=== PATIENT | female | born 1965 | race Caucasian/White ===

== ENCOUNTER 2024-06-19 20:35 | Emergency (ER) | payer BC, SELFPAY ==
[2024-06-19 20:40] VITALS: BP 123/84
[2024-06-19 23:51] VITALS: BP 154/82
--- NOTE | 2024-06-19 23:53 | ED.GENMED ---
History of Present Illness
<PAUL Hyatt - Last Filed: 06/20/24 03:25>
General
Chief Complaint: Abnormal Lab Value
Source: patient
Exam Limitations: none
Time Seen by Provider: 06/19/24 23:52
Nursing documentation reviewed up to this point in time: agreed with except (did not get abx inj at , just discussed )
History of Present Illness
History of Present Illness:
Patient is a 59yo F w/ PMH CLL, DM, and HTN presents to the ED after being sent by for high WBC. Pt injured L 3rd toe 5 days ago, went to 06/16, dx w/ cellulitis, and started on doxy. Pt returned to 06/19, labs were redrawn, and WBC count
went up. Pt states that told her they were concerned that this meant infx is in blood and body was not fighting infx. Pt admits that redness of toe has decreased. Continues to endorse pain w/ tenderness. Reports incr swelling of L lateral foot
and continued pain w/ wb. States pain has started to radiate across foot. Reports hx of L tibia, R ankle, metatarsal, and BL wrist fx. Uses compression boots for leg swelling, possible lymphedema. States yeast infx has remained the same and only
given 2 doses of fluconazole.
Review of Systems
<PAUL Hyatt - Last Filed: 06/20/24 03:25>
Review of Systems
Constitutional: Denies fever, fatigue or chills
EENT: Denies sore throat or runny nose
Respiratory: Denies cough or trouble breathing
Cardiac: Denies chest pain or palpitations
ABD/GI: Denies abdominal pain, nausea, vomiting, diarrhea or constipated
: Denies dysuria
Skin: Reports itching and rash
Neurological: Denies dizzy or headache
Phy Exam
<PAUL Hyatt - Last Filed: 06/20/24 03:25>
General Physical Exam
General Presentation: mild distress
General age: appears older than age
General Habitus: obese
General Mental: alert and anxious
Eye Exam
Eye Exam: PERRL
Cardiovascular Exam
Cardiovascular Exam: regular rate/rhythm
Pulmonary Exam
Pulmonary Exam: lungs clear, no respiratory distress, no rales, no crackles and no rhonchi
Neurological Exam
Neurological Exam: alert, oriented x3 and speech normal
Musculoskeletal Exam
Musculoskeletal Exam: edema
Course
<ST OlenaPA - Last Filed: 06/20/24 03:25>
Orders/Labs/Results
Orders:
Orders
06/20/24 00:55
Foot, Left 3 View [CR Foot - Left Min 3 Views] Urgent
Comment:
Reason For Exam: direct trauma to dorsal foot, 3rd toe-pain
06/20/24 01:59
Lester Wrap Left-Treatment ONCE
Comment: left foot
Vital Signs
Initial and Last Documented VS:
Initial Vital Signs
Temp Pulse Resp BP Pulse Ox
97.7 F 78 16 123/84 99
06/19/24 20:40 06/19/24 20:40 06/19/24 20:40 06/19/24 20:40 06/19/24 20:40
Last Documented Vital Signs
Temp Pulse Resp BP Pulse Ox
97.7 F 65 18 118/66 100
06/19/24 20:40 06/20/24 01:09 06/20/24 01:09 06/20/24 01:09 06/20/24 01:13
<Nakia Fink DO - Last Filed: 06/20/24 02:03>
Orders/Labs/Results
Orders:
Orders
06/20/24 00:55
Foot, Left 3 View [CR Foot - Left Min 3 Views] Urgent
Comment:
Reason For Exam: direct trauma to dorsal foot, 3rd toe-pain
06/20/24 01:59
Lester Wrap Left-Treatment ONCE
Comment: left foot
Vital Signs
Initial and Last Documented VS:
Initial Vital Signs
Temp Pulse Resp BP Pulse Ox
97.7 F 78 16 123/84 99
06/19/24 20:40 06/19/24 20:40 06/19/24 20:40 06/19/24 20:40 06/19/24 20:40
Last Documented Vital Signs
Temp Pulse Resp BP Pulse Ox
97.7 F 65 18 118/66 100
06/19/24 20:40 06/20/24 01:09 06/20/24 01:09 06/20/24 01:09 06/20/24 01:13
<PAUL Hyatt - Last Filed: 06/20/24 03:25>
MDM/Problems Addressed
Differential Diagnosis Includes:
benign leukocytosis, UTI, acute LL on CLL
<PAUL Hyatt - Last Filed: 06/20/24 03:25>
*Critical Care Note
Total Time (30-74mins, 75-104mins- exclusive of procedures): Not Applicable
<Nakia Fink DO - Last Filed: 06/20/24 02:03>
*Radiology
Radiology exam reviewed: preliminary read by ED provider (Left foot x-ray shows no evidence of acute fracture.)
*Pulse Oximetry
Patient hypoxic: no
ED Attending Note
<PAUL Hyatt - Last Filed: 06/20/24 03:25>
-
Portions of this chart may have been created with voice recognition software.� Occasional wrong word or��sound alike� substitutions may have occurred due to the inherent limitations of voice recognition software.
<Nakia Fink, DO - Last Filed: 06/20/24 02:03>
ED Attending Note
Patient seen and examined by attending physician: Yes
I performed the substantive portion of visit, reviewed & personally made and approve the management plan that is documented in note by myself or PERCY.: Yes
ED Attending Note:
This is a 59-year-old obese woman who resides at home with her . She has history of CLL, maintained on Imbruvica, history of bipolar disorder, chronic lymphedema bilateral lower extremities as well as history of akg-vyclxgi-igrdxfkoe
diabetes, recently diagnosed with hemoglobin A1c elevated at 12. Has been started on metformin as well as Ozempic earlier this month.
She also has history of DJD of knees, has been following with orthopedics and has undergone Synvisc injections to her knees and most recently underwent steroid injection to her knees June 13.
While at her son's wedding this weekend her left foot was inadvertently stepped on and she complains of pain to her third toe of her left foot with pain radiating up the dorsal aspect of her left foot.
Evaluated at urgent care June 17 and underwent x-rays reportedly negative. Was diagnosed with cellulitis of her toe and started on doxycycline.
Return visit to urgent care for recheck June 19. Both patient and the note improvement in redness and swelling of her left third toe and she also notes that she has not had a fever, no chills.
Repeat laboratory studies performed earlier today; urgent care was concerned with uptrend in white blood cell count from 12.1 on June 17 to now 12.9. Sent to the ED for further evaluation.
She does have history of chronic lymphedema bilateral lower extremities and has Lymphedema pumps at home which she uses most nights.
She has not had a fever nor chills.
Blood sugars have been better controlled generally running 109-250.
59-year-old woman appears her stated age, bright and alert, pleasant, quite chatty, appears in no acute distress. is accompanying. She is afebrile.
HEENT: Oral mucosa is moist.
Heart is regular rate and rhythm. No murmur no rub.
Respirations are easy nonlabored.
Abdomen is rotund, soft, nontender.
Extremities: Chronic venous stasis skin thickening bilateral lower extremities with mild rubor to bilateral lower extremities. There is a single small intact vesicle left anterior mckeon. There is a subacute superficial abrasion left lateral lower
leg without drainage nor focal erythema.
The third toe of the left foot has minimal erythema distal aspect of the toe just proximal to the nail. Nail and nailbed are intact. There is no ulceration, no lymphangitis. Mild to moderate tenderness about the toe as well as mild tenderness to
the mid to distal foot. Peripheral pulses are full and equal. Sensation and strength intact.
With history diabetes, CLL, chronic venous stasis bilateral lower extremities patient is certainly at risk for infectious process, cellulitis.
However reassuring that erythema of toe has improved over the past 48 hours with just 48 hours of antibiotics.
It is also reassuring that she has not had a fever, no tachycardia, no fatigue nor weakness. Nothing to suggest SIRS.
Labs from urgent care show mild uptrend in white blood cell count but this could certainly be attributed to recent steroid injection from less than 1 week ago.
Will check x-ray of left foot due to continued pain, concern for occult fracture.
At this point no indication for further laboratory studies and would recommend she continue doxycycline until finished.
06/20/2024 0200 AM
Left foot x-ray shows no evidence of acute fracture.
Will add Lester wrap to left foot for supportive measures.
Recommend continuing doxycycline until finished.
Continue lymphedema pumps on a daily basis.
Prompt follow-up with PCP for recheck.
Discharge Plan
Departure
Patient Disposition: Home (Routine Discharge)
Date of Disposition: 06/20/24
Time of Disposition: 02:01
Patient with high blood pressure during this ER visit?: No
Condition: Good
Discharge Problem:
Contusion of foot, left
Instructions: Lymphedema (DC), Contusion
Prescriptions:
No Action
furosemide [Lasix] 40 mg Tablet
40 mg PO Q48H
alprazolam [Xanax] 1 mg Tablet
1 mg PO PRN PRN (Reason: anxiety)
meclizine 12.5 mg Tablet
12.5 mg PO BID
aspirin [Aspir-81] 81 mg Tablet,Delayed Release (Dr/Ec)
81 mg PO DAILY
potassium chloride 20 mEq Packet
20 meq PO DAILY
metoprolol tartrate 50 mg Tablet
50 mg PO BID
allopurinol 300 mg Tablet
300 mg PO DAILY
lisinopril 2.5 mg Tablet
2.5 mg PO DAILY
Patient Comments:
I believe it is 2.5 mg, it may be 5mg
metformin 750 mg Tablet Extended Release 24 Hr
750 mg PO DAILY
rosuvastatin 10 mg Tablet
10 mg PO DAILY
cholecalciferol (vitamin D3) [Vitamin D3] 125 mcg (5,000 unit) Tablet
5,000 unit PO DAILY
Imbruvica 280 mg Tablet
280 mg PO DAILY
Ozempic 0.25 mg or 0.5 mg (2 mg/3 mL) Pen Injector
0.5 mg SC QWEEK
Referrals:
Robert Dale MD [Family Provider] - Call in 1-3 days for appt
Interventions
Interventions:
*Risk Screen - Suicide Last Done: 06/19/24 20:40
*General Assessment Last Done: 06/20/24 02:44
*Neglect/Abuse Screening Last Done: 06/19/24 20:40
ED- Fall Risk Assessment Last Done: 06/20/24 00:10
*Nursing Disposition Last Done: 06/20/24 02:44
Discharge Date and Time
Discharge Date/Time: 06/20/24 02:45
Print Language: EGYPTIAN
[2024-06-19 23:58] VITALS: BP 154/82
--- NOTE | 2024-06-20 00:10 | EDRN ---
Pt. sent from Urgent Care 'because my white blood cell count was too high compared to the last one they did'. Paperwork shows WBC increased from 12.1 on 06/17, to 12.9 today. Refer to scanned documentation for further results and [facility]
documentation.
[2024-06-20 01:09] VITALS: BP 118/66
== END 2024-06-20 02:45 | disposition home or self-care (01) ==
LOC: EMR 20:35
PROVIDERS: EMERGENCY PHYSICIAN Emergency Medicine; FAMILY PHYSICIAN Family Medicine
DX: S90.32XA Contusion of left foot, initial encounter (principal); W51.XXXA Accidental striking against or bumped into by another person, initial encounter; I10 Essential (primary) hypertension; E11.9 Type 2 diabetes mellitus without complications
CPT/HCPCS: 99283; 73630

== ENCOUNTER → 2024-07-08 16:38 | Outpatient (REF) | payer BC, SELFPAY | LOC: RAD 16:38 | PROVIDERS: ATTENDING PHYSICIAN Physician Assistant Medical | DX: J40 Bronchitis, not specified as acute or chronic (principal); R06.2 Wheezing | CPT/HCPCS: 71046 ==

== ENCOUNTER 2024-07-18 17:26 | Observation (INO) | payer BC, SELFPAY ==
[2024-07-18] VITALS (10 sets, daily range): BP systolic 122–200; BP diastolic 71–110; BMI 37.6
[2024-07-18 13:54] LABS: % Basophils 0.4 % (0-2); % Immature Granulocytes 1.8 % (0-0.5); % Lymphocytes 10.6 % (20.5-51.1); % Monocytes 3.3 % (1.7-9.3); % Neutrophils 83.9 % (42.2-75.2); Absolute Basophils 0.1 10^3/uL (0-0.2); Absolute Immature Granulocytes 0.4 10^3/uL (0-0.05); Absolute Lymphocytes 2.4 10^3/uL (1.2-3.4); Absolute Monocytes 0.8 10^3/uL (0.1-0.6); Absolute Neutrophils 19.2 10^3/uL (1.4-6.5); Hematocrit 46.8 % (37.0-47.0); Hemoglobin 15.9 g/dL (12.0-16.0); Mean Corpuscular Hgb 35.2 pg (27.0-31.0); Mean Corpuscular Volume 103.5 fL (81.0-99.0); Mean Platelet Volume 11.1 fL (7.4-10.4); Nucleated Red Blood Cells % 0 %; Platelet Count 319 10^3/uL (130-400); Red Blood Cell Count 4.52 10^6/uL (4.20-5.40); Red Cell Dist. Width 13.2 % (11.5-14.5); White Blood Cell Count 22.9 10^3/uL (4.8-10.8)
[2024-07-18 14:14] LABS: Troponin I < 0.012 ng/ml
[2024-07-18 14:27] LABS: ALT (SGPT) 54 U/L (0-35); AST (SGOT) 39 U/L (14-36); Albumin 4.7 g/dl (3.5-5.0); Alkaline Phosphatase 142 U/L (38-126); Blood Urea Nitrogen 25 mg/dl (7-17); Calcium 10.2 mg/dl (8.4-10.2); Carbon Dioxide 23 mmol/L (22-30); Chloride 99 mmol/L (98-107); Glucose 244 mg/dl (70-99); Potassium 4.3 mmol/L (3.5-5.1); Sodium 138 mmol/L (135-145); Total Bilirubin 0.8 mg/dl (0.2-1.3); Total Protein 7.3 g/dl (6.3-8.2); eGFR > 60.00
--- NOTE | 2024-07-18 14:32 | ED.GENMED ---
History of Present Illness
General
Chief Complaint: Fall
Source: patient, spouse and family
Exam Limitations: none
Time Seen by Provider: 07/18/24 14:04
Nursing documentation reviewed up to this point in time: agreed with
History of Present Illness
History of Present Illness:
59-year-old female presents emergency department via EMS from home. She blacked out. She states this has happened before when she has panic attacks. She denies feeling lightheaded or woozy prior to the event.
Past History
Past History
ED Past Medical History: Cancer (CLL) and HTN
ED Past Surgical History:
Social History
Tobacco: Smoker
Alcohol: None
Drug: None
Personal:
Living: with family
Review of Systems
Review of Systems
Allergies reviewed?: Yes
All Other Systems: Not applicable
Constitutional: Reports no symptoms
EENT: Reports no symptoms
Respiratory: Reports no symptoms
Cardiac: Reports syncope
ABD/GI: Reports no symptoms
: Reports no symptoms
Musculoskeletal: Reports no symptoms
Skin: Reports no symptoms
Neurological: Reports no symptoms
Endocrine: Reports no symptoms
Hematologic/Lymphatic: Reports no symptoms
Psychiatric: Reports no symptoms
Phy Exam
Physical Exam
Physical Exam:
Physical Exam
General: no apparent distress, not acutely ill
Neck: supple. no meningeal signs. normal posterior pharynx
Heart: s1/s2 regular rate and rhythm, no murmur. equal radial
pulses.
HEENT: Pupils equal round reactive to light, EOMI, bruise and superficial laceration nose
Lungs: no acute respiratory distress. clear bilaterally
Abdomen: normal bowel sounds. not tender. no CVAT
Neuro: alert and oriented. no focal neurological deficits cranial nerves II through XII intact
Skin: no rash
Psychiatric: well kept. interactive and cooperative
Extremities: no edema. no calf tenderness. negative homans. good distal pulses
Course
Orders/Labs/Results
Orders:
Orders
07/18/24 13:22
Electrocardiogram (*1) Urgent
Reason for Study: Chest Pain
Cardiac Monitoring- Treatment ONCE
EKG- Treatment ONCE
IV Insert/Care/Rem.- Treatment PRN
O2 Therapy [RESP] Urgent
Titrate/Wean O2 to maintain O2 sat greater than (%): 90
Special Instructions: Maintain sats >/=90%
Pulse Ox/spot Check [RESP] Urgent
Quantity: 1
Special Instructions: ON ROOM AIR
07/18/24 13:30
Complete Blood Count/With Diff Urgent
Comprehensive Metabolic Panel Urgent
Troponin I Urgent
07/18/24 14:23
CT Head W/o Iv Contrast Urgent
Comment:
Reason For Exam: syncope, hit head
07/18/24 Dinner
1800 calorie (15 carb) Diabetic
At Your Request: Full Participation
07/18/24 17:09
Admit/Transfer Patient As Directed
Co-Sign Provider:
Level of Care: Observation services
Assign to:: Telemetry
Physician / Group: Dr Engle
Diagnosis: Syncope
Reason for Telemetry: Arrhythmia
Date to Stop Telemetry: 07/21/24
Time to Stop Telemetry: 11:00
PRN Pain Medication Management As Directed
May give lesser potent ordered pain med per pt: Yes
preference::
Protocol:: Medication orders for pain may be administered in a
manner that supports deferring to patient preference
when the pt is:
- Requesting an ordered lesser potent pain medication.
Least to most potent pain medications are defined
as: acetaminophen < NSAID < tramadol < opioids
(morphine, oxycodone, hydromorphone).
- Requesting a lesser dose of the same medication IF
ORDERED.
- Requesting a less intrusive route of administration
if both routes are prescribed by the provider (PO <
IV).
07/18/24 17:12
Code Status As Directed
Resuscitation Status: Full Code
07/18/24 17:14
Orthostatic Vital Signs As Directed
Orthostatic VS Frequency: BID
07/18/24 17:15
CARDIOLOGY CONSULT Routine
Consulting Provider: Vinod Chu
Was physician already notified: Yes
Reason for consult: Syncope eval
Dextrose 50%-Water [Dextrose 50% Syringe] 12.5 grams IV [id number] PRN
Glucagon [GlucaGen] 1 mg IM PRN PRN
07/18/24 17:16
Bedside Glucose Monitoring As Directed
Frequency: AC&HS
Additional Instructions:: Change to q6h if pt on TPN, tube feeding or not eating
07/18/24 18:00
0.9% Sodium Chloride 1000 ml [Nss] 1,000 ml IV 65 mls/hr
Allopurinol [Zyloprim] 300 mg PO QPM
Alprazolam [Xanax] 1 mg PO Q4H
Metformin Extended Release [Glucophage Xr Extended Release] 750 mg PO QPM
07/18/24 18:30
Bisacodyl [Dulcolax] 10 mg RECTAL [id number] PRN
Docusate W/Senna [Senokot-S] 1 tablet PO BIDPRN PRN
Enoxaparin Sodium [Lovenox] 40 mg SC QPM
Polyethylene Glycol Powder [Miralax] 17 grams PO DAILYPRN PRN
ibrutinib [Imbruvica] See Dose Instructions PO QPM
07/18/24 18:30
Activity As Directed
Activity Level: Out of Bed-Early Mobility
Vital Signs As Directed
Frequency: Per unit guidelines
DX Deep Vein Thrombosis Video Routine
07/19/24 06:00
Basic Metabolic Panel IN AM
Complete Blood Count/With Diff IN AM
Glycohemoglobin (HgbA1c) IN AM
LFT [Dyyvu-Zegx-Euomlec] IN AM
Troponin I IN AM
07/19/24 07:30
Insulin Aspart Corrective Mod [Novolog Flexpen-Moderate Resistance] See Protocol SC AC
07/19/24 08:00
Aspirin Low Dose EC [Aspir Low (Enteric Coated)] 81 mg PO DAILY
Lisinopril [Zestril] 10 mg PO DAILY
Metoprolol Xl [Toprol Xl] 100 mg PO DAILY
07/21/24 11:00
DC Protocol for Telemetry ONCE
Abnormal Lab Results
07/18/24
13:30
WBC 22.9 H 10^3/uL
(4.8-10.8)
MCV 103.5 H fL
(81.0-99.0)
MCH 35.2 H pg
(27.0-31.0)
MPV 11.1 H fL
(7.4-10.4)
Abs Immat Gran (auto) 0.4 H 10^3/uL
(0-0.05)
Absolute Neuts (auto) 19.2 H 10^3/uL
(1.4-6.5)
Absolute Monos (auto) 0.8 H 10^3/uL
(0.1-0.6)
Immature Gran % 1.8 H %
(0-0.5)
Neutrophils % 83.9 H %
(42.2-75.2)
Lymphocytes % 10.6 L %
(20.5-51.1)
BUN 25 H mg/dl
(7-17)
Glucose 244 H mg/dl
(70-99)
AST 39 H U/L
(14-36)
ALT 54 H U/L
(0-35)
Alkaline Phosphatase 142 H U/L
(38-126)
07/18/24 13:30
07/18/24 13:30
Vital Signs
Initial and Last Documented VS:
Initial Vital Signs
Temp Pulse Resp BP Pulse Ox
98.7 F 100 20 199/110 98
07/18/24 13:15 07/18/24 13:15 07/18/24 13:15 07/18/24 13:15 07/18/24 13:15
Last Documented Vital Signs
Temp Pulse Resp BP Pulse Ox
98.3 F 84 16 156/91 99
07/18/24 18:40 07/18/24 18:40 07/18/24 18:40 07/18/24 18:40 07/18/24 18:40
MDM/Problems Addressed
Differential Diagnosis Includes:
Dysrhythmia
MDM/Problems Addressed:
59-year-old female with sudden syncope episode without prodrome. Admit to hospitalist for further evaluation. Patient's leukocytosis related to her CLL. Do not section.
Chronic conditions affecting care: Cancer (CLL)
*Radiology
Radiology exam reviewed: radiology read reviewed (CT head no acute findings)
*Pulse Oximetry
Patient hypoxic: no
*EKG
Interpreted by ED Provider?: Yes
EKG Intrepretation Date: 07/18/24
EKG Intrepretation Time: 13:26
Interpretation: abnormal
Comparison EKG: changes noted
Heart Rate: 83
Rate: normal
Rhythm: sinus and sinus arrhythmia
[place]: normal axis
Interval: normal interval
QRS Pattern: normal QRS
Ischemia: no ischemia
*Hardening Machine Operator Interpretation
Rate: normal
Interpretation: normal
Heart Rate: 88
Rhythm: sinus
*Critical Care Note
Total Time (30-74mins, 75-104mins- exclusive of procedures): Not Applicable
Patient Management
Social determinants of health affecting care: Living situation
Discussion with other providers: Hospitalist
Escalation/DeEscalation of care consider admission/obs:
admit indicated
ED Attending Note
-
Portions of this chart may have been created with voice recognition software.� Occasional wrong word or��sound alike� substitutions may have occurred due to the inherent limitations of voice recognition software.
Discharge Plan
Departure
Patient Disposition: Admit
Date of Disposition: 07/18/24
Time of Disposition: 16:25
Admit to: Telemetry
Presentation/result/management discussed w/ accepting MD/DO: Hospitalist
Patient with high blood pressure during this ER visit?: Yes
Condition: Good
Discharge Problem:
Syncope, Fall
Interventions
Interventions:
*Risk Screen - Suicide Last Done: 07/18/24 13:15
*General Assessment Last Done: 07/18/24 13:15
*Neglect/Abuse Screening Last Done: 07/18/24 13:15
ED- Fall Risk Assessment Last Done: 07/18/24 15:47
*ED COVID-19 Vaccine History Last Done: 07/18/24 13:15
*Nursing Disposition Last Done: 07/18/24 18:30
ED-Musculoskeletal Assessment Last Done: 07/18/24 15:47
ED- Neurological Assessment Last Done: 07/18/24 13:28
ED-Skin Assessment Last Done: 07/18/24 15:47
Discharge Date and Time
Discharge Date/Time: 07/18/24 18:31
--- NOTE | 2024-07-18 17:17 | HPS.HSE ---
Family Physician
-
Family Physician: Robert Dale
Chief Complaint
-
Syncope
History of Present Illness
Patient is 59 years old female with history of hypertension, hyperlipidemia, diabetes mellitus, bipolar, anxiety, CLL, recent bronchitis, possible CHF, presented to the hospital for syncope. Patient went outside to smoke some cigarettes around 12
to 1 PM today and when she went back she felt some palpitations and passed out. Her heard a thump and went and checked on her and she was minimally responsive for a couple minutes but no tonic-clonic activity or tongue biting or bowel or
bladder incontinence. No chest pain or shortness of breath prior or after the event. On further questioning patient describes several things going on lately; she has been recently diagnosed with bronchitis when she was taking antibiotics and
steroids. She also has been having decreased sleep maybe one hour the most she sleeping. She also having increased anxiety. Patient also has been on GLP-1 agonist over the last few weeks. She also had changes on her diuretics doses. She also
states she did not eat for over 12 hours. In the ER, noticed leukocytosis and increased LFTs. She was referred to hospitalist service for further evaluation.
Medical History
Past Medical History
Past Medical History: Reports Other (hypertension, hyperlipidemia, diabetes mellitus, bipolar, anxiety, CLL, probable CHF.)
Past Surgical History: Reports None
Social History
Tobacco: Smoker
Alcohol: None
Drug: None
Family History
Family History: Not pertinent
Allergies / Home Medications
Allergies reflects when Allergies were last updated in [facility].
Home Medications with original date entered in [facility]
Allergy/Medication List:
Allergies
Allergy/AdvReac Type Severity Reaction Status Date / Time
aripiprazole [From Abilify] Allergy Unknown Verified 06/19/24 20:47
escitalopram Allergy Unknown Verified 06/19/24 20:47
gabapentin Allergy Rash Verified 06/19/24 20:47
olanzapine Allergy Rash Verified 06/19/24 20:47
sulfamethoxazole Allergy Rash Verified 06/19/24 20:47
[From Bactrim]
tiapride Allergy Rash Verified 04/01/22 20:09
trimethoprim [From Bactrim] Allergy Rash Verified 06/19/24 20:47
UNSURE Allergy Unknown Uncoded 02/15/22 22:27
Home Medications
allopurinol 300 mg tablet 300 mg PO QPM Gout 06/19/24
alprazolam 1 mg tablet (Xanax) 1 mg PO Q4H anxiety 06/19/24
aspirin 81 mg tablet,delayed release 81 mg PO DAILY Blood Clot Prevention/Tx 06/19/24
cholecalciferol (vitamin D3) 125 mcg (5,000 unit) tablet (Vitamin D3) 5,000 unit PO DAILY Supplement 06/19/24
furosemide 40 mg tablet (Lasix) 40 mg PO Q48H Fluid Retention/Swelling 06/19/24
ibrutinib 280 mg tablet (Imbruvica) 280 mg PO QPM Cancer 06/19/24
meclizine 12.5 mg tablet 12.5 mg PO BID vertigo 06/19/24
metformin 750 mg tablet,extended release 24 hr 750 mg PO QPM Diabetes 06/19/24
potassium chloride 20 mEq oral packet 20 meq PO QPM Electrolyte Repletion 06/19/24
rosuvastatin 10 mg tablet 10 mg PO DAILY High Cholesterol 06/19/24
semaglutide 0.25 mg or 0.5 mg (2 mg/3 mL) subcutaneous pen injector (Ozempic) 0.5 mg SC MERCEDES Diabetes 06/19/24
acetaminophen 650 mg tablet,extended release (Tylenol 8 Hour) 650 mg PO [id number] PRN mild pain 07/18/24
azithromycin 250 mg tablet 250 mg PO DAILY infection 07/18/24
calcium carbonate (Tums) 200 mg PO QIDPRN PRN stomach issues 07/18/24
fluticasone propionate 50 mcg/actuation nasal spray,suspension 1 spray intranasal DAILY Allergies 07/18/24
inulin 2 gram chewable tablet (Fiber Gummies) 4 g PO DAILY constipation 07/18/24
lisinopril 10 mg tablet 10 mg PO DAILY Blood Pressure 07/18/24
metoprolol succinate 50 mg tablet,extended release 24 hr 100 mg PO DAILY Heart Disease/BP 07/18/24
prednisone 10 mg tablet 10 mg PO .TAPER Anti-Inflammatory 07/18/24
Review of Systems
-
A 12 point ROS was completed and negative except as noted: Yes
Physical Exam
Vital Signs
Vital Signs
Temp Pulse Resp BP Pulse Ox
98.7 F 76 16 158/91 96
07/18/24 13:15 07/18/24 17:00 07/18/24 16:00 07/18/24 17:00 07/18/24 17:00
Physical exam:
General: Well Developed, Well Nourished and No Apparent Distress
HEENT: Normocephalic, Atraumatic and Moist Mucous Membranes
Respiratory: Clear to Auscultation; Negative Wheezes, Rales or Rhonchi
Cardiac: Regular Rhythm and S1/S2
GI: Soft, Nontender and Nondistended
Musculoskeletal: No Clubbing, No Cyanosis and No Edema
Neuro: Awake, Alert and Oriented, no neuro-deficits
Psych: Anxious, a bit pressure speech but family summarize her statements frequently
Physical Exam
General: Other
Laboratory Results
-
07/18/24 13:30
07/18/24 13:30
Laboratory Results
Total Bilirubin 0.8 mg/dl (0.2-1.3) 07/18/24 13:30
AST 39 U/L (14-36) H 07/18/24 13:30
ALT 54 U/L (0-35) H 07/18/24 13:30
Alkaline Phosphatase 142 U/L (38-126) H 07/18/24 13:30
Troponin I < 0.012 ng/ml 07/18/24 13:30
Data Reviewed
-
CT Scan: Image Personally Visualized and interpreted
Lab Data: Labs Reviewed by me
Impression/Plan
-
IMPRESSION:
Patient is 59 years old female with multiple comorbidities presented to the hospital with syncope event.
PLAN:
Syncope:
Unclear etiology but appears to have multiple triggers
Check orthostatic
Gentle IV fluid
Hold diuretics for now
Trend cardiac enzymes- first cardiac enzyme normal
EKG no apparent significant abnormality
Cardiology consult-discussed with cardiology via [facility] text
CT head unremarkable for acute pathology
Will see if psych or neuro needs to be involved after reevaluation in a.m. for ?sz or anxiety and/or manic sx
Leukocytosis:
Reactive versus infection
Likely reactive due to recent steroid use and underlying CLL
Hold abx and steroids
Follow-up trend
Elevated LFTs:
Unclear etiology
Hold statins for now
Follow-up trend and if persists then will do further workup
Hypertension:
Continue beta-laure and SUJIT inhibitor
Monitor blood pressure and adjust medications accordingly
Hyperlipidemia:
Hold statin
Diabetes mellitus type 2:
Diabetic diet
Insulin sliding scale
Update hemoglobin A1c in a.m.
Check TSH in am
CLL:
Continue Imbruvica
Smoker:
Nicotine patch
DVT prophylaxis:
Lovenox SQ
CODE STATUS:
Full code
Time spent 75 minutes
[2024-07-18] MEDS: NSS 1000 IV (19:15)
[2024-07-18] MEDS: ZYLOPRIM 300 MG PO (19:15)
[2024-07-18] MEDS: XANAX 1 MG PO ×2 (19:15→22:57)
[2024-07-18] MEDS: NICODERM TRANSDERMAL 14 MG TRANSDERM (19:15)
[2024-07-18] MEDS: LOVENOX 40 MG SC (19:16)
[2024-07-18] MEDS: GLUCOPHAGE XR EXTENDED RELEASE 750 MG PO (19:16)
[2024-07-18 22:25] LABS: Glucose - Point of Care 149 mg/dl (70-99)
[2024-07-19] MEDS: MOTRIN 400 MG PO (00:04)
[2024-07-19] MEDS: XANAX 1 MG PO ×5 (03:08→18:34)
[2024-07-19 03:50] VITALS: BP 99/61
[2024-07-19] MEDS: REFRESH EYE DROPS (PF) 1 DROPS OPHTH (05:50)
[2024-07-19 06:00] VITALS: BMI 37.4
--- NOTE | 2024-07-19 07:56 | CON.CAR ---
Addendum entered and electronically signed by Vinod Chu MD 07/19/24 18:13:
I saw and examined the patient.
The Screw Machine Operator [employer] Type's note was reviewed and I agree with the note.
Comment: Briefly, 59-year-old woman with past medical history of hypertension, type 2 diabetes and CLL who presents following syncopal episode
Patient reports loss of consciousness yesterday that brought her to the [place] emergency department
Tells me she had gone outside to smoke a cigarette and then abruptly passed out
She does not have recollection of the event and cannot give me any details regarding prodromal symptoms
Has had poor oral intake since starting Ozempic, possible that dehydration or hypoglycemia contributed to this episode
Twelve-lead ECG and physical exam are unremarkable
Telemetry shows normal sinus rhythm, no arrhythmias and no high-grade AV block or pauses
Transthoracic echocardiogram confirmed she has a structurally normal heart and no significant valve disease
Plan for outpatient bulk picker to assess for arrhythmia
We will arrange for office follow-up
Original Note:
Consultation
Consultation Request
Date/Time Consultation Requested: 07/19/2024
Date/Time Consultation Performed: 07/19/2024
Requesting Provider: Dr. Engle
Performing Provider: Patience Byrd PA-C for Dr. Chu
Reason for Consultation: Syncope
Medical History
-
History of Present Illness:
HPI: Pascale is a 59 year old female with PMH HTN, HLD, DM2, Bipolar disorder, and CLL who presented to [facility] for evaluation after syncopal episode at home. She reports she has not been sleeping well and also has not been eating or drinking much and
has been losing weight with ozempic and lasix. She went outside yesterday to smoke a cigarette and came in to have food and suddenly passed out. She does not remember what happened prior to event and denies any dizziness/lightheadedness prior to
event. Her who was home at the time heard a thump and came down, finding her face down on the floor. He called 911 and she started to wake back up after a few minutes. She denies any history of syncope, but does admit to 'blacking out' with
prior episodes of panic attacks. She feels well currently and has no complaints. Workup in ER was unremarkable. Troponin negative, EKG stable. Labwork did reveal leukocytosis, however otherwise was without significant abnormality. BP was stable in
ER, however on most recent check this AM was somewhat hypotensive at 99/61.
PMH:
Hypertension
Hyperlipidemia
DM 2
Bipolar disorder
CLL
Past Medical History
Past Medical History: Other (In HPI)
Past Surgical History:
Social History
Tobacco: Smoker
Alcohol: None
Drug: None
Personal:
Living: With Family
Family History
Family History: Cancer and Hypertension
Allergies / Home Medications
Allergy/AdvReac Type Severity Reaction Status Date / Time
aripiprazole [From Abilify] Allergy Unknown Verified 06/19/24 20:47
escitalopram Allergy Unknown Verified 06/19/24 20:47
gabapentin Allergy Rash Verified 06/19/24 20:47
olanzapine Allergy Rash Verified 06/19/24 20:47
sulfamethoxazole Allergy Rash Verified 06/19/24 20:47
[From Bactrim]
tiapride Allergy Rash Verified 04/01/22 20:09
trimethoprim [From Bactrim] Allergy Rash Verified 06/19/24 20:47
UNSURE Allergy Unknown Uncoded 02/15/22 22:27
�Medication �Instructions �Recorded �Confirmed �Type
allopurinol 300 mg tablet 300 mg PO QPM Gout 06/19/24 07/18/24 History
alprazolam 1 mg tablet (Xanax) 1 mg PO Q4H anxiety 06/19/24 07/18/24 History
aspirin 81 mg tablet,delayed 81 mg PO DAILY Blood Clot 06/19/24 07/18/24 History
release Prevention/Tx
cholecalciferol (vitamin D3) 125 5,000 unit PO DAILY Supplement 06/19/24 07/18/24 History
mcg (5,000 unit) tablet (Vitamin
D3)
furosemide 40 mg tablet (Lasix) 40 mg PO Q48H Fluid 06/19/24 07/18/24 History
Retention/Swelling
ibrutinib 280 mg tablet (Imbruvica) 280 mg PO QPM Cancer 06/19/24 07/18/24 History
meclizine 12.5 mg tablet 12.5 mg PO BID vertigo 06/19/24 07/18/24 History
metformin 750 mg tablet,extended 750 mg PO QPM Diabetes 06/19/24 07/18/24 History
release 24 hr
potassium chloride 20 mEq oral 20 meq PO QPM Electrolyte Repletion 06/19/24 07/18/24 History
packet
rosuvastatin 10 mg tablet 10 mg PO DAILY High Cholesterol 06/19/24 07/18/24 History
semaglutide 0.25 mg or 0.5 mg (2 0.5 mg SC MERCEDES Diabetes 06/19/24 07/18/24 History
mg/3 mL) subcutaneous pen injector
(Ozempic)
acetaminophen 650 mg 650 mg PO [id number] PRN mild pain 07/18/24 07/18/24 History
tablet,extended release (Tylenol 8
Hour)
azithromycin 250 mg tablet 250 mg PO DAILY infection 07/18/24 07/18/24 History
calcium carbonate (Tums) 200 mg PO QIDPRN PRN stomach issues 07/18/24 07/18/24 History
fluticasone propionate 50 1 spray intranasal DAILY Allergies 07/18/24 07/18/24 History
mcg/actuation nasal
spray,suspension
inulin 2 gram chewable tablet 4 g PO DAILY constipation 07/18/24 07/18/24 History
(Fiber Gummies)
lisinopril 10 mg tablet 10 mg PO DAILY Blood Pressure 07/18/24 07/18/24 History
metoprolol succinate 50 mg 100 mg PO DAILY Heart Disease/BP 07/18/24 07/18/24 History
tablet,extended release 24 hr
prednisone 10 mg tablet 10 mg PO .TAPER Anti-Inflammatory 07/18/24 07/18/24 History
Review of Systems
-
History Source: Patient
All other systems: Negative unless noted
Physical Exam
Vital Signs
Temp Pulse Resp BP Pulse Ox
98.1 F 72 18 99/61 95
07/19/24 03:50 07/19/24 03:50 07/19/24 03:50 07/19/24 03:50 07/19/24 03:50
Lab Results
Troponin I < 0.012 ng/ml 07/18/24 13:30
Physical Exam
General: Well Developed, Well Nourished and No Apparent Distress
HEENT: Normocephalic, Anicteric and Moist Mucous Membranes
Respiratory: Clear and Non Labored Respirations
Cardiac: S1/S2 and Regular Rhythm
Musculoskeletal: No Clubbing, No Cyanosis and Edema
Skin: Warm and Dry
Neuro: AO x 3
Psych: Calm
Impression / Plan
-
PCP: Dr. Dale
Receiving Weigher: Dr. VIVIANE Dubon
Impression:
Syncope
Leukocytosis
Elevated LFTs
Hypertension
Hyperlipidemia
DM 2
Bipolar disorder
CLL
Echo 07/15/2022: EF 55%, trace MR, trace TR, estimated PAP 23 mmHg
Echo 07/19/2024: Study pending
Plan:
-Presented after syncopal episode yesterday afternoon. Does not recall feeling dizzy or lightheaded prior to event. Found down by and came to after a few minutes.
-EKG SR with sinus arrhythmia. QTc stable at 411 ms.
-Troponin negative x2. Denies chest pain.
-CXR and head CT without acute abnormality.
-BP stable on arrival to ER. Borderline hypotensive early this AM. Check orthostatic VS.
-Lasix on hold. Agree w/ IVFs. Creat stable.
-Continues on lisinopril and Metoprolol. If orthostatic, may need to adjust dose.
-Check echo
-No arrhythmias noted on review of tele this AM. Continue to follow while admitted. Will arrange for 5 day CAM monitor to be placed at discharge to continue monitoring.
-TSH pending. K stable.
-Elevated LFTs noted. Follow this admission. Crestor on hold.
-Hgb A1c pending.
-Will arrange cardiology follow up.
HPI: Pascale is a 59 year old female with PMH HTN, HLD, DM2, Bipolar disorder, and CLL who presented to [facility] for evaluation after syncopal episode at home. She reports she has not been sleeping well and also has not been eating or drinking much and
has been losing weight with ozempic and lasix. She went outside yesterday to smoke a cigarette and came in to have food and suddenly passed out. She does not remember what happened prior to event and denies any dizziness/lightheadedness prior to
event. Her who was home at the time heard a thump and came down, finding her face down on the floor. He called 911 and she started to wake back up after a few minutes. She denies any history of syncope, but does admit to 'blacking out' with
prior episodes of panic attacks. She feels well currently and has no complaints. Workup in ER was unremarkable. Troponin negative, EKG stable. Labwork did reveal leukocytosis, however otherwise was without significant abnormality. BP was stable in
ER, however on most recent check this AM was somewhat hypotensive at 99/61.
Data Reviewed
-
EKG: Tracing Personally Visualized and interpreted
Radiology: Report Reviewed by me
CT Scan: Report Reviewed by me
Labs: Labs Reviewed by me
Old Records: Reviewed
[2024-07-19 08:41] VITALS: BP 125/65
--- NOTE | 2024-07-19 08:42 | W.PN.HOSP.TC ---
Today's Communication/Plan
-
IVF. Orthostatic. Echocardiogram. Psychiatry consult. Cardio eval.
Assessment / Plan
Assessment / Plan
Physical exam:
General: Well Developed, Well Nourished and No Apparent Distress
HEENT: Normocephalic, Atraumatic and Moist Mucous Membranes
Respiratory: Clear to Auscultation; Negative Wheezes, Rales or Rhonchi
Cardiac: Regular Rhythm and S1/S2
GI: Soft, Nontender and Nondistended
Musculoskeletal: No Clubbing, No Cyanosis and No Edema
Neuro: Awake, Alert and Oriented, no neuro-deficits
Psych: Anxious
A/P:
Syncope:
Unclear etiology but appears to have multiple triggers
Check orthostatic
Gentle IV fluid and can stop later today
Hold diuretics for now
Trend cardiac enzymes- first cardiac enzyme normal
EKG no apparent significant abnormality
Cardiology consult appreciated-plan for echocardiogram today
CT head unremarkable for acute pathology
Anxiety/bipolar:
Will request psychiatry consultation today (discussed with psych via [place] text today)-discussed with patient and she is agreeable
Leukocytosis:
Reactive versus infection
Likely reactive due to recent steroid use and underlying CLL
Hold abx and steroids
WBC 22.9--> 13.1
Follow-up trend
Elevated LFTs:
Trending down
Hold statins for now
Hypertension:
Continue beta-laure and SUJIT inhibitor
Monitor blood pressure and adjust medications accordingly
Hyperlipidemia:
Hold statin
Diabetes mellitus type 2:
Diabetic diet
Insulin sliding scale
Update hemoglobin A1c in a.m.
Check TSH in am
CLL:
Continue Imbruvica
Smoker:
Nicotine patch
DVT prophylaxis:
Lovenox SQ
CODE STATUS:
Full code
Anticipated Discharge: Within 24 hours
Subjective/Interval History
-
Date of Service: July 19, 2024
Patient continues to feel anxious. No further syncope.
Objective Data
-
Labs:
Laboratory Results
07/19/24
07:48
WBC Pending
Hgb Pending
Hct Pending
Plt Count Pending
Sodium Pending
Potassium Pending
Chloride Pending
Carbon Dioxide Pending
BUN Pending
Creatinine Pending
Glucose Pending
Calcium Pending
Total Bilirubin Pending
AST Pending
ALT Pending
Alkaline Phosphatase Pending
Vital Signs:
Vital Signs
Temp Pulse Resp BP Pulse Ox
97.8 F 72 18 125/65 97
07/19/24 08:41 07/19/24 08:41 07/19/24 08:41 07/19/24 08:41 07/19/24 08:41
I&O
07/18/24 07/19/24 07/20/24
06:59 06:59 06:59
Intake Total 480 / 480
Balance 480 / 480
[2024-07-19 08:46] LABS: Troponin I < 0.012 ng/ml
[2024-07-19 08:51] LABS: Glucose - Point of Care 153 mg/dl (70-99)
[2024-07-19 09:10] LABS: ALT (SGPT) 42 U/L (0-35); AST (SGOT) 27 U/L (14-36); Alkaline Phosphatase 124 U/L (38-126); Blood Urea Nitrogen 22 mg/dl (7-17); Calcium 9.1 mg/dl (8.4-10.2); Carbon Dioxide 27 mmol/L (22-30); Chloride 102 mmol/L (98-107); Direct Bilirubin 0.2 mg/dl (0.0-0.4); Estimated Creatinine Clearance 95 ml/min; Glucose 110 mg/dl (70-99); Potassium 4.2 mmol/L (3.5-5.1); Sodium 139 mmol/L (135-145); Total Bilirubin 0.8 mg/dl (0.2-1.3); Total Protein 6.4 g/dl (6.3-8.2); eGFR > 60.00
[2024-07-19 09:14] LABS: % Basophils 0.8 % (0-2); % Eosinophils 1.1 % (0-6); % Immature Granulocytes 0.9 % (0-0.5); % Lymphocytes 32.3 % (20.5-51.1); % Monocytes 6.7 % (1.7-9.3); % Neutrophils 58.2 % (42.2-75.2); Absolute Basophils 0.1 10^3/uL (0-0.2); Absolute Eosinophils 0.2 10^3/uL (0-0.7); Absolute Immature Granulocytes 0.1 10^3/uL (0-0.05); Absolute Lymphocytes 4.2 10^3/uL (1.2-3.4); Absolute Monocytes 0.9 10^3/uL (0.1-0.6); Absolute Neutrophils 7.6 10^3/uL (1.4-6.5); Hematocrit 43.6 % (37.0-47.0); Hemoglobin 14.7 g/dL (12.0-16.0); Mean Corp Hgb Conc. 33.7 g/dL (33.0-37.0); Mean Corpuscular Hgb 35.9 pg (27.0-31.0); Mean Corpuscular Volume 106.6 fL (81.0-99.0); Mean Platelet Volume 11.1 fL (7.4-10.4); Nucleated Red Blood Cells % 0 %; Platelet Count 239 10^3/uL (130-400); Red Blood Cell Count 4.09 10^6/uL (4.20-5.40); Red Cell Dist. Width 13.6 % (11.5-14.5); White Blood Cell Count 13.1 10^3/uL (4.8-10.8)
[2024-07-19 09:40] LABS: TSH Reflex To Free T4 4.04 uIU/ml (0.47-4.68)
[2024-07-19 10:03] LABS: Hepatitis C Antibody Negative (Negative)
[2024-07-19] MEDS: ASPIR LOW (ENTERIC COATED) 81 MG PO (10:03)
[2024-07-19] MEDS: NOVOLOG FLEXPEN-MODERATE RESISTANCE 1 UNITS SC (10:03)
[2024-07-19] MEDS: ZESTRIL 10 MG PO (10:03)
[2024-07-19] MEDS: TOPROL XL 100 MG PO (10:03)
[2024-07-19] MEDS: NICODERM TRANSDERMAL 14 MG TRANSDERM (10:04)
[2024-07-19 12:05] LABS: Glycohemoglobin (HgbA1c) 7.5 % (4.0-5.6)
[2024-07-19 13:54] LABS: Glucose - Point of Care 134 mg/dl (70-99)
[2024-07-19] MEDS: NOVOLOG FLEXPEN-MODERATE RESISTANCE SC ×2 (14:04→18:06)
[2024-07-19 15:47] VITALS: BP 125/77
--- NOTE | 2024-07-19 16:08 | VNURNOTE ---
Home Health Liaison met with patient and spouse at bedside to discuss [facility] nurse/therapy, visits, schedule and homebound status. Patient is agreeable and understands that visits at home will be 2-3 x per week to assess and teach medical management.
[facility] brochure provided with contact information. Patient is aware that [facility] will contact them for start of care in 1-2 days after discharge from .
[facility] referral completed in [facility].
--- NOTE | 2024-07-19 16:52 | W.DCSUMMARY ---
Discharge Summary
Discharge Data
Date of Admission: 07/18/24
Date of Discharge: 07/19/24
-
Pending Results: No
Hospital Course
Patient is 59 years old female with history of bipolar, hypertension, hyperlipidemia, diabetes mellitus, CLL, presented to the hospital with syncope event. Patient was given some IV fluid and orthostatics were checked and diuretics were on hold.
Cardiology was consulted. She had an echocardiogram and no significant abnormalities found. Cardiology will do a heart monitor as outpatient. Patient also has significant anxiety and we asked psychiatry to see her. Psychiatry note not uploaded
by the time of discharge. Psychiatry reached out to me and told me that she is cleared for discharge from their standpoint today and no new medications. No other events were noticed.
Discharge Plan
-
Patient Disposition: Home (Routine Discharge)
Discharge Diagnosis/Procedures: Syncope. Anxiety. Leukocytosis. Elevated liver function test.
Diet: Low Cholesterol
Activity: As tolerated
Blood Work: Please PCP to order CBC, CMP within 1 week
Specialty Instructions: Weigh Daily- Call MD for wt gain/loss 3 lbs overnight/5 lbs in 1 week
Referrals:
Robert Dale MD [Family Provider] - in less than 1 week
Esperanza Sanders PA-C [Specified Professional Personl] - 08/23/24 12:40 pm (You have a follow up visit with Dr. Dubon's Esperanza PATEL, at the [place] office. Please call with questions. )
Prescriptions:
Continued
alprazolam [Xanax] 1 mg Tablet
1 mg PO Q4H
Patient Comments:
07/17/24: last filled 06/29/24 for 150 tablets over 30 days.
meclizine 12.5 mg Tablet
12.5 mg PO BID
aspirin 81 mg Tablet,Delayed Release (/Ec)
81 mg PO DAILY
allopurinol 300 mg Tablet
300 mg PO QPM
metformin 750 mg Tablet Extended Release 24 Hr
750 mg PO QPM
rosuvastatin 10 mg Tablet
10 mg PO DAILY
cholecalciferol (vitamin D3) [Vitamin D3] 125 mcg (5,000 unit) Tablet
5,000 unit PO DAILY
Imbruvica 280 mg Tablet
280 mg PO QPM
Ozempic 0.25 mg or 0.5 mg (2 mg/3 mL) Pen Injector
0.5 mg SC MERCEDES
metoprolol succinate 50 mg Tablet Extended Release 24 Hr
100 mg PO DAILY
acetaminophen [Tylenol 8 Hour] 650 mg Tablet Extended Release
650 mg PO [id number] PRN (Reason: mild pain)
lisinopril 10 mg Tablet
10 mg PO DAILY
calcium carbonate [Tums] 200 mg calcium (500 mg) Tablet,Chewable
200 mg PO QIDPRN PRN (Reason: stomach issues)
fluticasone propionate 50 mcg/actuation [place],Suspension
1 spray INTRANASAL DAILY
Fiber Gummies 2 gram Tablet,Chewable
4 g PO DAILY
Discontinued
furosemide [Lasix] 40 mg Tablet
40 mg PO Q48H
potassium chloride 20 mEq Packet
20 meq PO QPM
prednisone 10 mg Tablet
10 mg PO .TAPER
Patient Comments:
07/18/24: 3 tabs QD for 3 days, 2 tabs QD for 3 days, 1 tab QD for 3 days
azithromycin 250 mg Tablet
250 mg PO DAILY
Discharge Orders:
Discharge Patient (As Directed); Ordered 07/19/24
Ordered By: Andrew Engle
Discharge Date and Time
Discharge Date/Time: 07/19/24 19:16
Print Language: GREENLANDIC
[2024-07-19] MEDS: NSS IV (17:06)
--- NOTE | 2024-07-19 17:14 | CM ---
Alert awake oriented patient who lives with her Adiel in a 2 story home with 5 steps to enter and 5 steps to bed/bathroom. She is assisted in activates of daily living.She does not drive .She uses a walker,wheelchair,cane.Offered VN she
requested [facility] Liaison Ashley aware.
Has had VN in past . No SNF hx
Pharmacy [facility]
PCP Dr Dale
PLAN Home with [facility] if accepted Ashley set up VN
[2024-07-19 17:59] LABS: Glucose - Point of Care 144 mg/dl (70-99)
[2024-07-19] MEDS: GLUCOPHAGE XR EXTENDED RELEASE 750 MG PO (18:34)
[2024-07-19] MEDS: ZYLOPRIM 300 MG PO (18:34)
[2024-07-19] MEDS: NON-FORMULARY ITEM 280 MG PO (18:35)
[2024-07-19] MEDS: LOVENOX SC (18:35)
[2024-07-19 18:50] VITALS: BP 137/63
== END 2024-07-19 19:16 | disposition home health service (06) ==
LOC: 3 WEST ACU 17:26
PROVIDERS: ADMITTING PHYSICIAN Hospitalist; CONSULT PHYSICIAN Internal Medicine Cardiovascular Disease; EMERGENCY PHYSICIAN Emergency Medicine; FAMILY PHYSICIAN Family Medicine
DX: R55 Syncope and collapse (principal); I11.9 Hypertensive heart disease without heart failure; C91.10 Chronic lymphocytic leukemia of B-cell type not having achieved remission; F41.0 Panic disorder [episodic paroxysmal anxiety]; R07.9 Chest pain, unspecified; I49.8 Other specified cardiac arrhythmias; E78.5 Hyperlipidemia, unspecified; F41.9 Anxiety disorder, unspecified; F31.9 Bipolar disorder, unspecified; I95.9 Hypotension, unspecified; E11.9 Type 2 diabetes mellitus without complications; F17.210 Nicotine dependence, cigarettes, uncomplicated; R00.2 Palpitations; R79.89 Other specified abnormal findings of blood chemistry; Z88.1 Allergy status to other antibiotic agents; Z88.2 Allergy status to sulfonamides; Z88.8 Allergy status to other drugs, medicaments and biological substances; Z79.82 Long term (current) use of aspirin; Z79.84 Long term (current) use of oral hypoglycemic drugs; Z79.4 Long term (current) use of insulin; Z79.51 Long term (current) use of inhaled steroids; Z79.52 Long term (current) use of systemic steroids; Z82.49 Family history of ischemic heart disease and other diseases of the circulatory system
CPT/HCPCS: 70450; 80053; 82248; 82962; 83036; 84443; 84484; 85025; 86803; 93005; 93306; 99285; G0378

== ENCOUNTER 2025-07-11 06:39 | Outpatient (RCR) | payer BC, SELFPAY | END 2025-07-14 23:59 | disposition home or self-care (01) | LOC: RPT 06:39 | PROVIDERS: ATTENDING PHYSICIAN Family Medicine | DX: C91.10 Chronic lymphocytic leukemia of B-cell type not having achieved remission (principal); Z73.6 Limitation of activities due to disability; R26.89 Other abnormalities of gait and mobility; R56.9 Unspecified convulsions; M19.90 Unspecified osteoarthritis, unspecified site; E11.40 Type 2 diabetes mellitus with diabetic neuropathy, unspecified | CPT/HCPCS: 97163; 97530 ==

== ENCOUNTER 2025-08-26 15:15 | Outpatient (RCR) | payer BC, SELFPAY | END 2025-08-26 23:59 | disposition home or self-care (01) | LOC: RPT 15:15 | PROVIDERS: ATTENDING PHYSICIAN Family Medicine | DX: C91.10 Chronic lymphocytic leukemia of B-cell type not having achieved remission (principal); Z73.6 Limitation of activities due to disability; R26.89 Other abnormalities of gait and mobility; R56.9 Unspecified convulsions; M19.90 Unspecified osteoarthritis, unspecified site; E11.40 Type 2 diabetes mellitus with diabetic neuropathy, unspecified | CPT/HCPCS: 97112; 97530 ==